=== PATIENT | female | born 1970 | race Caucasian/White ===

== ENCOUNTER 2017-10-28 15:57 | Emergency (ER) | payer OTHER ==
[~2017-10-28] VITALS: Ht 160 cm; Wt 84.4 kg
[2017-10-28 16:09] VITALS: Ht 160 cm; Wt 84.4 kg
--- NOTE | 2017-10-28 19:18 | ERD ---
ER Documentation Chief Complaint Chief Complaint vag bleed since 09/22/17 not HPI this 47 YO female presents to ED for vaginal bleeding , pt reports that she has had bleeding for 2-3 weeks at a time since September with one week off and restarted ROS All systems reviewed and are negative except as per history of present illness. PMhx/Soc History of Surgery: Yes ( x2 ~20 yr ago. ) Anesthesia Reaction: No Hx Neurological Disorder: No Hx Respiratory Disorders: No Hx Cardiac Disorders: Yes (HBP) Physical Exam Vitals Vital Signs Date Time Temp Pulse Resp B/P Pulse Ox O2 Delivery O2 Flow Rate FiO2 10/28/17 16:09 99.4 80 18 182/108 98 Physical Exam Const: Well-nourished, well-appearing, well-hydrated 47-year-old female in no acute distress. Resp: Respirations even and unlabored, clear to auscultation bilaterally, no respiratory distress Cardio: Regular rate and rhythm, no murmurs Abd: Soft, non tender, non distended no CVA tenderness Back: No midline or flank tenderness Neur: Awake and alert Psych: Normal Mood and Affect Result Diagram: 10/28/171929 Results 24 hrs Laboratory Tests Test 10/28/17 19:30 10/28/17 19:40 White Blood Count 6.610^3/ul Red Blood Count 4.4010^6/ul Hemoglobin 13.0g/dl Hematocrit 38.3% Mean Corpuscular Volume 87.0fl Mean Corpuscular Hemoglobin 29.5pg Mean Corpuscular Hemoglobin Concent 33.9g/dl Red Cell Distribution Width 12.8% Platelet Count 30492^3/UL Mean Platelet Volume 10.6fl Neutrophils % 59.4% Lymphocytes % 32.7% Monocytes % 5.6% Eosinophils % 1.5% Basophils % 0.5% Nucleated Red Blood Cells % 0.0/100WBC Neutrophils # 3.910^3/ul Lymphocytes # 2.210^3/ul Monocytes # 0.410^3/ul Eosinophils # 0.110^3/ul Basophils # 0.010^3/ul Nucleated Red Blood Cells # 0.010^3/ul Urine Color STRAW Urine Clarity CLEAR Urine pH 6.0 Urine Specific [place] 1.005 Urine Ketones NEGATIVEmg/dL Urine Nitrite NEGATIVEmg/dL Urine Bilirubin NEGATIVEmg/dL Urine Urobilinogen NEGATIVEmg/dL Urine Leukocyte Esterase NEGATIVELeu/ul Urine Microscopic RBC 116/HPF Urine Microscopic WBC 14/HPF Urine Hemoglobin 3+mg/dL Urine Glucose NEGATIVEmg/dL Urine Total Protein NEGATIVEmg/dl Urinalysis negative for evidence of infection, CBC negative for infection, or hemorrhage Procedures/MDM PROCEDURE: US Pelvis CLINICAL INDICATION: Pain. TECHNIQUE: Sonographic evaluation of the pelvis was performed utilizing both transabdominal and transvaginal technique. Images were reviewed on the high- resolution PACS workstation. COMPARISON: No prior studies are available for comparison. FINDINGS: The uterus is normal in size, echogenicity, and morphology. The uterus is 8.4 x 4.5 x 5.8 cm. The endometrium is thin and normal measuring 8.6 mm in diameter. The right ovary measures 2.8 x 2.2 x 2.1 cm. The left ovary measures 3 x 1.4 x 1.8 cm. The ovaries are symmetric in size, echogenicity, and morphology. Color doppler vascular flow is demonstrated to both ovaries. There are no adnexal masses. There is no free fluid in the pelvis. IMPRESSION: 1. Unremarkable ultrasound of the pelvis. RPTAT: [facility] .Ty Valentino MD, MD Date Time Electronically viewed and signed by .Ty Valentino MD, MD on 10/28/2017 20:49 This 47-year-old female presents to emergency department with complaints of vaginal bleeding 2-3 weeks out of the month with a 1 week break before vaginal bleeding returns. Patient has not seen her RN TRANSPLANT, denies any dysuria or pelvic pain. Denies history of endometriosis or uterine fibroids. Emergency room course includes history and physical exam, diagnostic testing, and ultrasound, laboratory findings unremarkable for hemorrhage, infection, ultrasound unremarkable for fibroids, endometrium thickening. Good blood flow to bilateral ovaries noted. Plan to discharge patient home with follow-up to OB [facility] for dysfunctional uterine bleeding. Patient is stable with no new complaints during ER course, clinically there is no current evidence to suggest related bleeding, iatrogenic uterine bleeding or any other emergent condition appearing to require further evaluation or hospitalization. I feel the patient is stable for discharge at this time. I have discussed results, examination findings, the treatment plan with the patient and family present prior to discharge. Indications for emergent reevaluation, side effects of medication were also discussed. All questions were answered. Patient verbalizes understanding and agrees with plan of care. Departure Diagnosis: Primary Impression: DUB (dysfunctional uterine bleeding) Condition: Good Patient Instructions: Cancer of the Uterus Referrals: RN TRANSPLANT REFERRAL LIST Additional Instructions: Thank you for for coming to [facility] for your care today. Please ask your nurse or provider if you have questions about your care today and do not leave until all your questions have been answered. Please use any medications given as directed and follow-up with your doctor (or the doctor you were referred to) in the next 2-3 days. If you do not have a primary care doctor you may follow up at the [facility] (listed below). You may also use motrin and tylenol as needed for fever and/or pain unless instructed otherwise by your provider or nurse. Indications for more urgent follow-up have been discussed, but you may return to the Emergency Department at ANY time for any worrisome or worsening symptoms. If you have abdominal pain, please know that no test or exam you received is perfect and you should follow up within 8 hours for continued pain. If you had any imaging studies today, such as an X-Ray or CT Scan, these studies will be reviewed later by a radiologist. You will be called if there are important findings that were not identified today, so make sure the contact information you provided at registration is correct. If you received any narcotic pain control medicine today, such as Vicodin, Morphine or Dilaudid, your coordination and judgment may be affected for a number of hours. Please do not drive or operate heavy machinery, and you may want someone to assist you at home. If you were given a prescription for narcotic medication, be aware that it is very addictive- use sparingly and only if necessary. SHERRIE PATTEN Oct 28, 2017 19:18 if necessary. SHERRIE PATTEN Oct 28, 2017 19:18
[2017-10-28 19:38] LABS: BASOPHILS % 0.5 % (0.0-2.0); EOSINOPHILS # 0.1 10^3/ul (0.0-0.5); EOSINOPHILS % 1.5 % (0.0-7.0); HEMATOCRIT 38.3 % (37.0-47.0); LYMPHOCYTES # 2.2 10^3/ul (0.8-2.9); LYMPHOCYTES % 32.7 % (15.0-51.0); MEAN CORPUSCULAR HEMOGLOBIN 29.5 pg (29.0-33.0); MEAN CORPUSCULAR HGB CONC 33.9 g/dl (32.0-37.0); MEAN PLATELET VOLUME 10.6 fl (7.4-10.4); MONOCYTE # 0.4 10^3/ul (0.3-0.9); MONOCYTES % 5.6 % (0.0-11.0); NEUTROPHIL # 3.9 10^3/ul (1.6-7.5); NEUTROPHILS % 59.4 % (39.0-77.0); PLATELET COUNT 151 10^3/UL (140-415); RED CELL DISTRIBUTION WIDTH 12.8 % (11.5-14.5); WHITE BLOOD COUNT 6.6 10^3/ul (4.8-10.8)
[2017-10-28 20:37] LABS: ADD UMIC YES; UR ASCORBIC ACID NEGATIVE (NEGATIVE); UR BILIRUBIN (Dip) NEGATIVE (NEGATIVE); UR BLOOD (Dip) 3+ mg/dL (NEGATIVE); UR CLARITY CLEAR (CLEAR); UR COLOR STRAW (YELLOW); UR GLUCOSE (Dip) NEGATIVE (NEGATIVE); UR KETONES (Dip) NEGATIVE (NEGATIVE); UR LEUKOCYTE ESTERASE (Dip) NEGATIVE Leu/ul (NEGATIVE); UR NITRITE (Dip) NEGATIVE (NEGATIVE); UR RBC 116 /HPF (0-5); UR SPECIFIC GRAVITY (Dip) 1.005 (1.003-1.030); UR TOTAL PROTEIN (Dip) NEGATIVE (NEGATIVE); UR UROBILINOGEN (Dip) NEGATIVE (NEGATIVE)
--- NOTE | 2017-10-28 20:49 | RADRPT ---
PROCEDURE: US Pelvis CLINICAL INDICATION: Pain. TECHNIQUE: Sonographic evaluation of the pelvis was performed utilizing both transabdominal and tr ansvaginal technique. Images were reviewed on the high-resolution PACS workstation. COMPARISON: No prior studies are available for comparison. FINDINGS: The uterus is normal in size, echogenicity, and morphology. The uterus is 8.4 x 4.5 x 5.8 cm. The endometrium is thin and normal measuring 8.6 mm in diameter. The right ovary measures 2.8 x 2.2 x 2.1 cm. The left ovary measures 3 x 1.4 x 1.8 cm. The ovaries are symmetric in size, echogenicity, and morphology. Color doppler vascular flow is demonstrated to both ovaries. There are no adnexal masses. There is no free fluid in the pelvis. IMPRESSION: 1. Unremarkable ultrasound of the pelvis. RPTAT: [facility] .Ty Valentino MD, Date Time Electronically viewed and signed by .Ty Valentino MD, on 10/28/2017 20:49 .K/
[2017-10-28 22:08] VITALS: BP 160/90; PULSE 84; RESP 16; TEMP 98.4
== END 2017-10-28 22:08 | disposition home or self-care (01) ==
LOC: FTE 15:57
DX: N93.8 Other specified abnormal uterine and vaginal bleeding (principal); R10.2 Pelvic and perineal pain
CPT/HCPCS: 36415; 76830; 76856; 81001; 85025; Z7502